=== PATIENT | female | born 1970 | race Caucasian/White ===

== ENCOUNTER 2020-09-17 12:54 | Observation (INO) | payer BC ==
[2020-09-17 13:33] LABS: #Basophils 0.1 thou/uL (0.0-0.2); #Eosinphils 0.3 thou/uL (0.0-0.7); #Lymphocytes 2.3 thou/uL (1.20-3.40); #Monocytes 0.6 thou/uL (0.11-0.59); #Neutrophils 4.7 thou/uL (1.40-6.50); %Basophils 0.9 % (0.0-1.0); %Eosinophils 3.5 % (0.0-10.0); %Lymphocytes 29.2 % (21.0-51.0); %Monocytes 7.3 % (0.0-10.0); Hemoglobin 14.4 g/dL (12.0-16.0); Mean Corpuscular HGB CONC 34.3 g/dL (32.0-36.0); Mean Corpuscular Hemoglobin 30.7 pg (27.0-31.0); Mean Corpuscular Volume 89.5 fL (78.0-98.0); Mean Platelet Volume 6.7 fL (7.4-10.4); Platelet Count 478 thou/uL (130-400); Red Blood Cell (RBC) Count 4.71 mill/uL (4.20-5.40); White Blood Cell (WBC) Count 7.9 thou/uL (4.8-10.8)
[2020-09-17 13:44] LABS: INR-International Normal Ratio 2.5; PTT 47.9 sec (22.9-36.1); Prothrombin Time 27.1 sec (12.0-14.7)
[2020-09-17 13:52] LABS: Digoxin Less than 0.15 ng/mL (0.8-2.0)
[2020-09-17 13:53] LABS: D-Dimer Test Less than 0.27 *mcg/mL (0.27-0.43)
[2020-09-17 14:01] LABS: AST (SGOT) 33 U/L (5-34); Anion Gap 15 mmol/L (10-20); Bilirubin, Total 0.5 mg/dL (0.2-1.2); Calc. Creatinine Clearance 0 mL/min (70-130); Calcium 9.5 mg/dL (7.8-10.44); Carbon Dioxide 24 mmol/L (22-29); Chloride 105 mmol/L (98-107); Potassium 4.4 mmol/L (3.5-5.1); Protein, Total 8.2 g/dL (6.0-8.3); Sodium 140 mmol/L (136-145)
[2020-09-17 14:11] LABS: Albumin 4.6 g/dL (3.5-5.0); Globulin 3.6 g/dL (2.4-3.5)
[2020-09-17 14:13] LABS: Glucose 96 mg/dL (70-105)
[2020-09-17] MEDS ORDERED: Aspirin Chewable 81 MG TAB ONE (14:13)
[2020-09-17 14:16] LABS: Alkaline Phosphatase 160 U/L (40-110)
[2020-09-17 14:17] LABS: BUN (Urea Nitrogen) 11 mg/dL (7.0-18.7)
[2020-09-17 14:19] LABS: ALT (SGPT) 37 U/L (8-55)
[2020-09-17 14:20] LABS: CK (CPK) 44 U/L (29-168); Lipase 31 U/L (8-78)
[2020-09-17 16:45] LABS: Troponin I 0.014 ng/mL (< 0.028)
--- NOTE | 2020-09-17 17:16 | HP ---
PRIMARY CARE PHYSICIAN: Dyllan Bajwa MD REASON FOR ADMISSION: Chest pain. HISTORY OF PRESENT ILLNESS: This is a very pleasant 49-year-old female, who presented to the emergency room after she was sent over by her nurse practitioner today, complaints of chest pain associated with congestion since 2 weeks more so since last couple of days. According to the patient, she has been suffering with the current symptomatology for 2 weeks, usually follows up with Dr. Tomas Draper, who is her primary paint supervisor as she has a history of tricuspid valve replacement with mechanical one for which the patient currently is on oral Coumadin and keeps her INR between 2.5 and 3.5. The patient states the symptomatology are intermittent in nature. Whenever present, it feels like pressure like and it is 8/10 in severity when present. Currently, the patient is sitting comfortably and says because of the complaints, she presented to her nurse practitioner, who reviewed her EKG and there was some atypical changes for which she was sent over to the emergency room. The patient's hemodynamics at this point of time are stable and the initial laboratory evaluation showed normal troponins with good INR at 2.5. No complaints of shortness of breath, abdominal pain, fever, rigors, chills, nausea, vomiting, diaphoresis, blurring of vision, tingling, numbness, burning micturition, constipation, claudication, anxiety, depression, hematuria, hematochezia, cough, expectoration, syncope, seizures, PND, or orthopnea noted at this point of time. PAST MEDICAL HISTORY: Mechanical tricuspid valve replacement in 1999. SOCIAL HISTORY: The patient denies tobacco, alcohol, or recreational drug abuse. FAMILY HISTORY: History of hypertension without any other comorbidities. PAST SURGICAL HISTORY: History of graft placements in her fallopian tubes to prevent future pregnancies. PERSONAL HISTORY: The patient denies tobacco, alcohol, or recreational drug abuse. Has one kid. Lives with her . MEDICATIONS: At home, Coumadin daily to keep INR between 2.5 to 3.5. REVIEW OF SYSTEMS: Except as documented all systems reviewed and negative. PHYSICAL EXAMINATION: GENERAL: This is a 49-year-old female, lying in her hospital bed, not in acute distress. Alert, oriented. VITAL SIGNS: Has a blood pressure of 120/68 mmHg, heart rate of 80 per minute, respiratory rate of 16 per minute, and saturation 100% on room air. Has an airway, which is clear. HEENT: Atraumatic, normocephalic. NECK: Supple. No bruit. No lymphadenopathy. CV: S1 and S2. No abnormal rhythms or murmurs. CHEST: Bilateral air entry present. No rhonchi. No wheeze. ABDOMEN: Soft, nontender. Bowel sounds are present. No organomegaly. EXTREMITIES: No cyanosis. Nonicteric. No pallor. NEUROLOGIC: The patient is alert, oriented. No focal motor or sensory deficits noted. HEME: No ecchymosis or petechiae. PSYCH: No depression or anxiety. DIAGNOSTICS: WBC 7.9, hemoglobin 14.4, hematocrit 42.1, and platelets are 478. INR is 2.5. Sodium 140, potassium 4.4, chloride 105, carbon dioxide is 24, BUN 11, and creatinine 0.90. Total bilirubin 0.5, AST 33, and ALT 37. Digoxin less than 0.15. Serial troponins have been ordered. ASSESSMENT: 1. Chest pain to rule out acute coronary syndrome. Initial troponin and EKG did not show any acute changes. We will follow serial troponins at this point of time and schedule the patient for Lexiscan stress test evaluation tomorrow in a.m. 2. Tricuspid valve replacement with mechanical valve. The patient currently on oral Coumadin to keep the INR between 2.5 and 3.5. PLAN: Discussed in detail of the diagnosis, treatment, and followup with the patient as well as the patient's covering nurse. I reviewed the patient's case in detail with the emergency room physician. We will closely monitor and advised about stress test evaluation and if there are any changes. We will consult the patient's primary paint supervisor, Dr. Tomas Draper. I have answered all questions and concerns addressed by the patient. At this point of time, I expect the patient to be admitted to the Hospitalist Services for less than 2 midnights. We will keep the patient n.p.o. for Lexiscan stress test evaluation tomorrow in a.m. Job ID: [id number] MTDD
[2020-09-17] MEDS ORDERED: Ondansetron PF 4 MG/2 ML Vial IVP PRN (18:45)
[2020-09-17] MEDS ORDERED: Acetaminophen 325 MG TAB PO PRN (18:45)
[2020-09-17] MEDS ORDERED: Ondansetron ODT 4 MG TAB SL PRN (18:45)
[2020-09-17 18:52] VITALS: BMI 31.9
[2020-09-17 19:56] LABS: Troponin I Less than 0.010 ng/mL (< 0.028)
[2020-09-18] MEDS ORDERED: Lisinopril 20 MG TAB PO SCH (09:00)
[2020-09-18] MEDS ORDERED: Metoprolol Tartrate 50 MG TAB PO SCH (09:00)
[2020-09-18] MEDS ORDERED: Aspirin 81 mg Enteric Coated Tablet PO SCH (09:00)
[2020-09-18] MEDS: Sodium Chloride 0.9% 1,000 ML IV SCH (09:34)
[2020-09-18 09:51] LABS: SARS-CoV-2 NAA Rapid Test DETECTED (NotDetected)
[2020-09-18 12:27] VITALS: BP 110/53; TEMP 97.9
[2020-09-18] MEDS ORDERED: Warfarin Sodium 5 MG TAB PO SCH (17:00)
--- NOTE | 2020-09-18 17:51 | DIS ---
DATE OF ADMISSION: 09/17/2020 DATE OF DISCHARGE: 09/18/2020 DISCHARGE DISPOSITION: Home. PRIMARY DISCHARGE DIAGNOSIS: COVID-19 virus infection with acute bronchitis. SECONDARY DISCHARGE DIAGNOSIS: Chest pain secondary to above, mechanical tricuspid valve replacement done in 1999. PROCEDURES DONE DURING HOSPITALIZATION: H and H 14 and 42, platelet count 478 with 59% neutrophils, 29% lymphocytes. INR 2.5. BUN 11, creatinine 0.9. Troponin x3 negative. BNP 34. These levels were less than 0.15. COVID-19 PCR was positive on 09/18/2020. DISCHARGE MEDICATIONS: Patient to continue her home dose of, 1. Coumadin at 5 mg daily. 2. Aspirin 81 mg daily. 3. Lisinopril 20 mg daily. 4. Metoprolol tartrate 50 mg daily. 5. Protonix 40 mg daily p.r.n. ALLERGIES: NO KNOWN DRUG ALLERGIES. DISCHARGE PLAN: The patient to follow up with her primary care physician, Dr. Bajwa, in [address] Draper, her primary child monitor as before. BRIEF COURSE DURING HOSPITALIZATION: The patient initially came in with complaints of chest heaviness and congestion in the upper airway. This has been ongoing for almost two weeks. In view of this history and a strong cardiac history of tricuspid valve replacement, the patient was placed under observation on telemetry. She has had three sets of troponin done which were negative. COVID-19 PCR came back positive. The patient is two weeks out into her illness and is not requiring any oxygen supplementation. She is hemodynamically stable and has been advised to stay in quarantine at home and follow up with her primary care physician in 1 week. Please note, I have seen and examined the patient on the day of discharge. Job ID: [id number] [facility]
--- NOTE | 2020-09-25 14:39 | EKG ---
Test Reason : CP Blood Pressure : / mmHG Vent. Rate : 067 BPM Atrial Rate : 067 BPM P-R Int : 162 ms QRS Dur : 084 ms QT Int : 422 ms P-R-T Axes : 016 003 090 degrees QTc Int : 445 ms Normal sinus rhythm Minimal voltage criteria for LVH, may be normal variant Septal infarct , age undetermined Abnormal ECG Confirmed by RAMYA BENÍTEZ, YONIS Layton ([id number]), features editor CAROLEE RACHEL ([id number]) on 09/25/2020 2:38:55 PM Referred By: CARLITOS Confirmed By:YONIS BUI MD
== END 2020-09-18 13:44 | disposition home or self-care (01) ==
LOC: ERS 12:54 → 3SE 15:05
PROVIDERS: ADMIT Internal Medicine; ATTEND Internal Medicine
DX: U07.1 COVID-19 (principal); J20.8 Acute bronchitis due to other specified organisms; R07.89 Other chest pain; E78.00 Pure hypercholesterolemia, unspecified; I10 Essential (primary) hypertension; R30.0 Dysuria; Z79.01 Long term (current) use of anticoagulants; Z79.82 Long term (current) use of aspirin; Z79.899 Other long term (current) drug therapy; Z95.2 Presence of prosthetic heart valve
CPT/HCPCS: 36415; 80053; 80162; 82550; 83690; 83880; 84484; 85025; 85379; 85610; 85730; 87086; 93005; 94760; G0378; U0002

== ENCOUNTER 2023-07-04 08:29 | Emergency (ER) | payer OTHER ==
[2023-07-04] MEDS ORDERED: traMADol HCl 50 MG TAB ONE (10:53)
== END 2023-07-04 11:03 | disposition home or self-care (01) ==
LOC: ERS 08:29
DX: M25.551 Pain in right hip (principal); M79.651 Pain in right thigh; I10 Essential (primary) hypertension; Z79.82 Long term (current) use of aspirin; Z79.01 Long term (current) use of anticoagulants; Z79.899 Other long term (current) drug therapy

== ENCOUNTER 2025-01-06 15:19 | Emergency (ER) | payer OTHER ==
[~2025-01-06 15:19] MED LIST: Iopamidol 370 76% 100 ML VIAL ONE
[2025-01-06 16:01] LABS: #Basophils 0.04 10x3/uL (0.0-0.2); #Eosinophils 0.17 10x3/uL (0.0-0.7); #Monocytes 0.54 10x3/uL (0.11-0.59); #Neutrophils 3.32 10x3/uL (1.40-6.50); %Basophils 0.6 % (0.0-1.0); %Eosinophils 2.6 % (0.0-10.0); %Lymphocytes 36.4 % (21.0-51.0); %Monocytes 8.4 % (0.0-10.0); %Neutrophils 51.8 % (42.0-75.0); Hemoglobin 11.5 g/dL (12.0-16.0); Mean Corpuscular HGB CONC 32.9 g/dL (32.0-36.0); Mean Corpuscular Hemoglobin 29.3 pg (27.0-31.0); Mean Corpuscular Volume 89.3 fL (78.0-98.0); Mean Platelet Volume 9.5 fL (7.4-10.4); Platelet Count 318 10x3/uL (130-400); RBC Distribution Width 13.1 % (11.5-14.5); Red Blood Cell (RBC) Count 3.92 mill/uL (4.20-5.40); White Blood Cell (WBC) Count 6.42 10x3/uL (4.8-10.8)
[2025-01-06 16:12] LABS: PTT 52.3 sec (22.9-36.1); Prothrombin Time 31.6 sec (12.0-14.7)
[2025-01-06 16:23] LABS: ALT (SGPT) 26 U/L (Less than 34); AST (SGOT) 27 U/L (11-34); Albumin 4.3 g/dL (3.1-4.5); Alkaline Phosphatase 119 U/L (40-110); Anion Gap 13 mmol/L (10-20); BUN (Urea Nitrogen) 10 mg/dL (9.8-20.1); Bilirubin, Total 0.4 mg/dL (0.3-1.2); Calc. Creatinine Clearance 0 mL/min (70-130); Calcium 9.1 mg/dL (7.8-10.44); Carbon Dioxide 22 mmol/L (22-29); Chloride 108 mmol/L (98-107); Estimated GFR 82; Glucose 97 mg/dL (70-105); Lipase 20 U/L (8-78); Potassium 4.4 mmol/L (3.5-5.1); Protein, Total 7.3 g/dL (6.0-8.3); Sodium 139 mmol/L (136-145)
[2025-01-06 17:16] LABS: Bilirubin Negative (Negative); Blood, Urine 1+ (Negative); CAUTI Indications for Culture Pelvic or flank pain; Clarity Clear (Clear); Glucose, Urine (Dipstick) Normal (Negative); Ketone, Urine Negative (Negative); Leukocyte Negative Leu/uL (Negative); Nitrite Negative (Negative); Protein, Urine (Dipstick) Negative (Neg-Trace); Specific Gravity, Urine 1.014 (1.002-1.036); Squamous Epithelial None Seen HPF (0-3); Urobilinogen Normal mg/dL (Less than 2); WBC/HPF 0-3 HPF (0-3)
[2025-01-06 17:22] LABS: Bacteria/HPF 1+ HPF (None Seen)
[2025-01-06 17:23] LABS: Urine Culture Reflex No No
[2025-01-06] MEDS ORDERED: Pantoprazole 40 MG VIAL ONE (19:18)
== END 2025-01-06 21:44 | disposition home or self-care (01) ==
LOC: ERS 15:19
DX: R10.13 Epigastric pain (principal); I10 Essential (primary) hypertension; E78.00 Pure hypercholesterolemia, unspecified; Z79.899 Other long term (current) drug therapy; Z79.82 Long term (current) use of aspirin; Z79.01 Long term (current) use of anticoagulants
CPT/HCPCS: 36415; 74177; 80053; 81001; 82274; 83690; 85025; 85610; 85730; 93005; 96374; J2470; Q9967